=== PATIENT | male | born 1990 | race American Indian/Alaskan Native ===

== ENCOUNTER 2020-10-24 16:21 | Emergency (ER) | payer BC ==
--- NOTE | 2020-10-24 16:36 | Event Note ---
ED Screening Note ED Screening Note: TOOK 10 PILLS LAST NIGHT ? WHAT THEY ARE TO HURT HIMSELF ONGOING THOUGHTS TO KILL HIMSELF TODAY WITH "ANYTHING" WHEN ASKED FOR A PLAN NO HI NO PRIOR MHE GF BROUGHT HIM TO ER This initial assessment/diagnostic orders/clinical plan/treatment(s) is/are subject to change based on patients health status, clinical progression and re- assessment by fellow clinical providers in the ED. Further treatment and workup at subsequent clinical providers discretion. Patient/guardian urged not to elope from the ED as their condition may be serious if not clinically assessed and managed. Initial orders include: 1013
[2020-10-24 16:59] LABS: Basophils % (Auto) 0.4 % (0.0-1.8); Eosinophils % (Auto) 0.7 % (0.0-4.3); Hematocrit 43.1 % (35.5-45.6); Hemoglobin 14.8 gm/dl (11.8-15.2); Lymphocytes # (Auto) 1.8 K/mm3 (1.2-5.4); Lymphocytes % (Auto) 29.9 % (13.4-35.0); Mean Corpuscular HGB Conc 34 % (32-34); Mean Corpuscular Volume 86 fl (84-94); Monocytes # (Auto) 0.5 K/mm3 (0.0-0.8); Monocytes % (Auto) 7.7 % (0.0-7.3); Platelet Count 268 K/mm3 (140-440); Red Blood Count 5.04 M/mm3 (3.65-5.03)
[2020-10-24 18:13] LABS: Alanine Aminotransferase 11 units/L (7-56); Albumin 4.7 g/dL (3.9-5); BUN/Creatinine Ratio 11; Blood Urea Nitrogen 12 mg/dL (9-20); Calcium 9.5 mg/dL (8.4-10.2); Hemolysis Index 0
[2020-10-24 18:22] LABS: Amphetamine Screen,Urine PRESUMPTIVE NEGATIVE; Benzodiazepines Screen,Urine PRESUMPTIVE NEGATIVE; Bilirubin,Urine NEG (Negative); Blood,Urine SM (Negative); Calcium Oxalate Crystals,Urine FEW; Cannabinoid Screen,Urine PRESUMPTIVE POSITIVE; Cocaine Screen,Urine PRESUMPTIVE NEGATIVE; Color,Urine Yellow (Yellow); Granular Casts,Urine 4 /LPF; Hyaline Casts,Urine 3 /LPF; Methadone Screen,Urine PRESUMPTIVE NEGATIVE; Mucus,Urine FEW /HPF; Opiate Screen,Urine PRESUMPTIVE NEGATIVE; Protein,Urine <15 mg/dL mg/dL (Negative)
--- NOTE | 2020-10-24 20:40 | Emergency Department Report ---
ED Psych HPI - General Chief Complaint: Psych Stated Complaint: OVERDOSE MEDS/BLOOD COMING FROM [facility] Time Seen by Provider: 10/24/20 16:35 Source: patient Mode of arrival: Ambulatory - History of Present Illness Initial Comments: 30-year-old male presents to ED with suicidal ideations. Patient reports depression for "a while." States he has never seen or talk to anyone about his depression. Patient reports yesterday he took 10 tramadol pills in a suicide attempt. Patient reports marijuana use as well. He denies any hallucinations or HI. MD Complaint: suicidal ideation -: days(s) (1) Associated Psychiatric Symptoms: depression, suicidal ideation Improves With: none Worsens With: none Context: significant life stressor Associated Symptoms: denies other symptoms If Self Harm: has acted on plan (attempted overdose) - Related Data Allergies Allergy/AdvReac Type Severity Reaction Status Date / Time No Known Allergies Allergy Unverified 10/24/20 16:35 ED Review of Systems ROS: Stated complaint: OVERDOSE MEDS/BLOOD COMING FROM [facility] Other details as noted in HPI Comment: All other systems reviewed and negative Psychiatric: depression, suicidal thoughts. denies: auditory hallucinations, visual hallucinations, homicidal thoughts ED Past Medical Hx - Past Medical History Previous Medical History?: No - Surgical History Past Surgical History?: No - Social History Smoking Status: Current Every Day Smoker Substance Use Type: Alcohol ED Physical Exam - General Limitations: No Limitations General appearance: alert, in no apparent distress - Head Head exam: Present: atraumatic, normocephalic - Eye Eye exam: Present: normal appearance - ENT ENT exam: Present: mucous membranes moist - Neck Neck exam: Present: normal inspection - Respiratory Respiratory exam: Present: normal lung sounds bilaterally. Absent: respiratory distress - Cardiovascular Cardiovascular Exam: Present: regular rate, normal rhythm - GI/Abdominal GI/Abdominal exam: Absent: distended - Extremities Exam Extremities exam: Present: normal inspection - Neurological Exam Neurological exam: Present: alert, oriented X3 - Psychiatric Psychiatric exam: Present: flat affect - Skin Skin exam: Present: warm, dry, intact, normal color ED Course Vital Signs 10/24/20 10/24/20 16:33 19:44 Temperature 98.5 F Pulse Rate 111 H 73 Respiratory 20 16 Rate Blood Pressure 179/115 Blood Pressure 130/99 [Right] O2 Sat by Pulse 92 99 Oximetry ED Medical Decision Making - Lab Data Result diagrams: 10/24/20 16:40 10/24/20 16:36 - Medical Decision Making 30-year-old male presents ED with depression and suicidal ideation. States he attempted overdose by taking 10 tramadol pills on yesterday. Patient is currently A&O x3. He is not drowsy. Vital signs stable. Labs are unremarkable. Patient is medically clear for mental health evaluation. - Differential Diagnosis Depression, suicidal ideation Critical care attestation.: If time is entered above; I have spent that time in minutes in the direct care of this critically ill patient, excluding procedure time. ED Disposition Clinical Impression: Depression, Suicidal ideation Condition: Stable Referrals: PRIMARY CARE, [Primary Care Provider] - 3-5 Days
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
[2020-10-25] MEDS: SERTRALINE 50 MG TAB PO SCH (13:29)
--- NOTE | 2020-10-26 10:31 | Progress Note ---
Subjective - Reason for Consult Consult date: 10/26/20 Reason for consult: MHE Requesting physician: AIDEN HALEY - Chief Complaint Chief complaint: REVIEW OF SYSTEMS Constitutional: Negative for weight loss ENT: Negative for stridor Respiratory: Negative for cough or hemoptysis All other systems reviewed and are negative MENTAL STATUS EXAMINATION General Appearance and Behavior: Age appropriate, good hygiene, wearing appropriate clothes,, good eye contact Cooperation: Participating/engaged, but Guarded Psychomotor Behavior: Psychomotor normal Mood: depressed Affect and affective range: irritable, labile Thought Process: illogical Thought Content: hopelessness, helplessness Speech: Normal rate, volume and rythm Intellectual Functioning: Average Suicidal Ideation: SI Homicidal Ideation: Denies HI Impulse Control: Impaired Insight and Judgment: Limited insight and judgment Memory: Normal Attention: Normal Orientation: Alert, Diagnoses: Assessment and Plan - Psychiatric problem (1) MDD (major depressive disorder) Current Visit: Yes Status: Acute F32.9 Treatment Plan MEDICATIONS: Start patient on antidepressant Risks, benefits and alternatives of medications discussed with the patient, questions answered and consent obtained from patient. PSYCHOTHERAPY: Supportive psychotherapy provided MEDICAL: Per primary team DELIRIUM PRECAUTIONS: Please re-orient patient frequently, keep lights on during the day, and minimize benzodiazepines and opiates as these medications could worsen patient's confusion. 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 Case discussed with Dr. Owen who agrees with current disposition LEGAL STATUS: 1013 FOLLOW-UP: Will follow Thank you for the consult. Please contact with any questions and/or concerns. Mental Status Exam - Vital signs Last Vital Signs Temp 98.8 F 10/26/20 08:33 Pulse 88 10/26/20 08:33 Resp 18 10/26/20 08:33 BP 141/78 10/26/20 08:33 Pulse Ox 96 10/26/20 08:33 Assessment and Plan - Patient Problems (1) MDD (major depressive disorder) Current Visit: Yes Status: Acute
[2020-10-26] MEDS: SERTRALINE 50 MG TAB PO SCH (11:39)
[2020-10-26 20:26] VITALS: BP 140/65
== END 2020-10-26 22:59 ==
LOC: ED 16:21
DX: R45.851 Suicidal ideations (principal); Z20.822 Contact with and (suspected) exposure to COVID-19; F32.9 Major depressive disorder, single episode, unspecified; F17.200 Nicotine dependence, unspecified, uncomplicated
CPT/HCPCS: 36415; 80053; 80307; 81001; 84443; 85025; 99285; U0003; 80320; G0480